=== PATIENT | male | born 1965 | race Two or more races ===

== ENCOUNTER 2024-05-11 06:28 | Emergency (ER) | payer MEDICAID ==
[~2024-05-11] VITALS: Ht 177.8 cm; Wt 117.5 kg
[2024-05-11 06:40] VITALS: BP 140/89; PULSE 78; RESP 18; TEMP 97.8; O2SAT 97
[2024-05-11] MEDS ORDERED: BUPIVAcaine 0.5% W/EPI /PF 10ml vial IJ STA (06:56)
[2024-05-11] MEDS: BUPIVAcaine/PF 7.5 mg/ml (0.75%) 30ml vial IJ ONE (07:28)
== END 2024-05-11 09:18 | disposition home or self-care (01) ==
LOC: ER 06:29
DX: N47.2 Paraphimosis (principal)
CPT/HCPCS: 54450; 99284